=== PATIENT | female | born 1995 ===

== ENCOUNTER 2019-03-26 13:28 | Outpatient (CLI) | payer OTHER ==
[~2019-03-26] VITALS: Ht 162.6 cm; Wt 113.0 kg
[2019-03-26 13:44] VITALS: BP 138/80
== END 2019-03-26 16:00 | disposition home or self-care (01) ==
LOC: LDOP 13:28
PROVIDERS: ATTEND Obstetrics & Gynecology Maternal & Fetal Medicine
DX: O16.3 Unspecified maternal hypertension, third trimester (principal); Z3A.39 39 weeks gestation of pregnancy
CPT/HCPCS: 36415; 59025; 80053; 80307; 81001; 82248; 82570; 84156; 84550; 85025; 99201; G0463

== ENCOUNTER 2019-03-27 14:51 | Inpatient (IN) | payer OTHER ==
[~2019-03-27] VITALS: Ht 162.6 cm; Wt 115.0 kg
[~2019-03-27 14:51] MED LIST: PREN1TAB60 PO
[2019-03-31] MEDS ORDERED: OXYTOCIN 30U/ 0.9% NaCL 500ML 500 ML IV ONE (16:34)
[2019-03-31] MEDS: D5%-LACTATED RINGERS 1,000 ML IV SCH (16:34)
[2019-03-31] MEDS ORDERED: FENTANYL PF 100 MCG/2ML IV PRN (17:00)
[2019-03-31] MEDS: PLEASE ENTER ALLERGIES MC SCH (17:00)
[2019-03-31] MEDS ORDERED: TERBUTALINE 1 MG/ML, 1ML SQ PRN (17:00)
[2019-03-31] MEDS ORDERED: ONDANSETRON 2MG/ML, 2ML IVPush PRN (17:00)
[2019-03-31] MEDS ORDERED: CALCIUM CARBONATE 500 MG TAB.CHEW PO PRN (17:00)
[2019-03-31] MEDS ORDERED: FENTANYL PF 100 MCG/2ML IVPush PRN (17:00)
[2019-03-31] MEDS: PLEASE ENTER HEIGHT AND WEIGHT MC SCH (17:00)
[2019-03-31 17:03] LABS: MICROSCOPIC INDICATED
[2019-03-31 17:08] LABS: ALANINE AMINOTRANSFERASE 16 U/L (12-78); ALBUMIN 2.5 g/dL (3.4-5.0); ANION GAP 10 mmol/L (5-15); CALCIUM 8.6 mg/dL (8.5-10.1); CHLORIDE 107 mmol/L (98-107)
[2019-03-31 17:09] LABS: BASOPHILS # (AUTO) 0.02 x10^3/uL (0-0.1); BASOPHILS % (AUTO) 0 % (0-1); BILIRUBIN, DIRECT < 0.1 mg/dL (0.1-0.2); EOSINOPHILS # (AUTO) 0.01 x10^3/uL (0-0.4); EOSINOPHILS % (AUTO) 0 % (1-7); LYMPHOCYTES # (AUTO) 2.02 x10^3/uL (1-3.4); LYMPHOCYTES % (AUTO) 21 % (22-44); MD NO; MEAN CORPUSCULAR HEMOGLOBIN 29.3 pg (27.0-34.8); MEAN CORPUSCULAR HGB CONC 32.7 g/dL (32.4-35.8); MEAN CORPUSCULAR VOLUME 89.8 fL (80-100); MEAN PLATELET VOLUME 10.9 fL (7.4-10.4); MONOCYTES # (AUTO) 0.39 x10^3/uL (0.2-0.8); MONOCYTES % (AUTO) 4 % (2-9); NEUTROPHILS # (AUTO) 7.31 x10^3/uL (1.8-6.8); NEUTROPHILS % (AUTO) 75 % (42-75); PLATELET COUNT 219 x10^3/uL (130-400); RED BLOOD COUNT 3.98 x10^6/uL (3.82-5.3); RED CELL DISTRIBUTION WIDTH 14.7 % (9.6-15.2)
[2019-03-31 17:10] LABS: CREATININE,URINE RANDOM 51.7 mg/dL
[2019-03-31 17:10] LABS: ALKALINE PHOSPHATASE 118 U/L (45-117); BILIRUBIN,TOTAL 0.3 mg/dL (0.2-1.0); TOTAL PROTEIN 7.1 g/dL (6.4-8.2)
[2019-03-31] MEDS: LACTATED RINGERS 1,000 ML IV SCH (23:27)
[2019-04-01] MEDS: D5%-LACTATED RINGERS 1,000 ML IV SCH ×3 (00:34→16:34)
[2019-04-01] MEDS: PLEASE ENTER HEIGHT AND WEIGHT MC SCH ×3 (01:00→17:00)
[2019-04-01] MEDS: PLEASE ENTER ALLERGIES MC SCH ×3 (01:00→17:00)
[2019-04-01] MEDS ORDERED: OXYTOCIN 30U/ 0.9% NaCL 500ML 500 ML ONE (04:26)
[2019-04-01] MEDS: LACTATED RINGERS 1,000 ML IV SCH ×3 (08:34→16:34)
[2019-04-01] MEDS ORDERED: OXYTOCIN 30U/ 0.9% NaCL 500ML 500 ML IV PRN (12:37)
[2019-04-01] MEDS ORDERED: AMPICILLIN 2 GM in SODIUM CHLORIDE 0.9% 100 ML IVPB ONE (12:37)
[2019-04-01] MEDS: AMPICILLIN 1 GM in SODIUM CHLORIDE 0.9% 100 ML IVPB SCH ×2 (17:45→22:33)
[2019-04-01 19:45] VITALS: BP 142/80
[2019-04-02] MEDS: AMPICILLIN 1 GM in SODIUM CHLORIDE 0.9% 100 ML IVPB SCH ×5 (02:30→19:26)
[2019-04-02] MEDS ORDERED: OXYTOCIN 30U/ 0.9% NaCL 500ML 500 ML IV PRN (06:22)
[2019-04-02] MEDS: D5%-LACTATED RINGERS 1,000 ML IV SCH (10:45)
[2019-04-02] MEDS ORDERED: ONDANSETRON 2MG/ML, 2ML ONE (13:14)
[2019-04-02] MEDS ORDERED: FENTANYL PF 100 MCG/2ML ONE (15:56)
[2019-04-02] MEDS ORDERED: LACTATED RINGERS 1,000 ML IV SCH (16:16)
[2019-04-02] MEDS ORDERED: FENTANYL/BUPIV./NS/PF 250 ML EPIDCONT SCH (16:16)
[2019-04-02] MEDS ORDERED: LACTATED RINGERS 1,000 ML IVBOLUS PRN (16:30)
[2019-04-02] MEDS ORDERED: EPHEDRINE 50 MG/ML, 1ML IVPush PRN (16:30)
[2019-04-02] MEDS ORDERED: LIDOCAINE/PF 1.5%-EPI 1:200K, 30ML ONE (16:59)
[2019-04-02] MEDS ORDERED: FENTANYL PF 500 MCG, BUPIVACAINE/PF 0.5%, 30ML 62.5 ML in SODIUM CHLORIDE 0.9% 177.5 ML EPIDCONT SCH (17:00)
[2019-04-02] MEDS ORDERED: OXYTOCIN 30U/ 0.9% NaCL 500ML 500 ML IV SCH (23:47)
[2019-04-03] MEDS ORDERED: CARBOPROST TROMETHAMINE 250 MCG/ML, 1ML IM PRN
[2019-04-03] MEDS ORDERED: OXYcodone IR 5MG TABLET PO PRN
[2019-04-03] MEDS ORDERED: ONDANSETRON 2MG/ML, 2ML IV PRN
[2019-04-03] MEDS ORDERED: MISOPROSTOL 200 MCG TABLET PR PRN
[2019-04-03] MEDS ORDERED: ACETAMINOPHEN 325 MG TABLET PO PRN
[2019-04-03] MEDS ORDERED: OXYcodone/APAP 5/325MG TABLET PO PRN
[2019-04-03 02:45] VITALS: BP 122/82
[2019-04-03] MEDS: IBUPROFEN 600 MG TABLET PO PRN ×4 (04:28→22:31)
[2019-04-03 06:40] LABS: MEAN CORPUSCULAR HEMOGLOBIN 29.3 pg (27.0-34.8); MEAN CORPUSCULAR HGB CONC 32.8 g/dL (32.4-35.8); MEAN CORPUSCULAR VOLUME 89.4 fL (80-100); MEAN PLATELET VOLUME 9.7 fL (7.4-10.4); PLATELET COUNT 187 x10^3/uL (130-400); RED BLOOD COUNT 2.99 x10^6/uL (3.82-5.3); RED CELL DISTRIBUTION WIDTH 14.6 % (9.6-15.2)
[2019-04-03 06:59] LABS: BASOPHILS # (AUTO) 0.06 x10^3/uL (0-0.1); BASOPHILS % (AUTO) 0 % (0-1); EOSINOPHILS # (AUTO) 0.01 x10^3/uL (0-0.4); EOSINOPHILS % (AUTO) 0 % (1-7); LYMPHOCYTES # (AUTO) 2.13 x10^3/uL (1-3.4); LYMPHOCYTES % (AUTO) 11 % (22-44); MD SCAN; MONOCYTES # (AUTO) 0.91 x10^3/uL (0.2-0.8); MONOCYTES % (AUTO) 5 % (2-9); NEUTROPHILS # (AUTO) 16.27 x10^3/uL (1.8-6.8); NEUTROPHILS % (AUTO) 84 % (42-75)
[2019-04-03 07:20] VITALS: BP 120/85
[2019-04-03] MEDS ORDERED: FERROUS SULFATE 325 MG TABLET ONE (10:01)
[2019-04-03] MEDS: PRENATAL VIT/IRON/FA 1 EACH TABLET PO SCH (10:08)
[2019-04-03] MEDS: DOCUSATE 100 MG CAPSULE PO SCH ×2 (10:08→22:32)
[2019-04-03] MEDS: FERROUS GLUCONATE 324 MG TABLET PO SCH (10:10)
[2019-04-03 12:15] VITALS: BP 128/85
[2019-04-03] MEDS ORDERED: MEASLES,MUMPS&RUBELLA VACC/PF 0.5 ML SQ-VACC ONE ×2 (13:48→14:30)
[2019-04-03] MEDS ORDERED: DIPH,PERTUSS(ACELL),TET VAC/PF NC IM-VACC ONE ×2 (14:17→14:30)
[2019-04-03 16:00] VITALS: BP 132/70
[2019-04-03 19:40] VITALS: BP 123/89
[2019-04-04 07:00] VITALS: BP 126/86
[2019-04-04] MEDS: FERROUS GLUCONATE 324 MG TABLET PO SCH (07:26)
[2019-04-04] MEDS: DOCUSATE 100 MG CAPSULE PO SCH (07:26)
[2019-04-04] MEDS: PRENATAL VIT/IRON/FA 1 EACH TABLET PO SCH (07:26)
[2019-04-04] MEDS: IBUPROFEN 600 MG TABLET PO PRN ×2 (07:26→16:34)
[2019-04-04] MEDS ORDERED: FERROUS GLUCONATE 324 MG TABLET PO SCH (08:00)
[2019-04-04] MEDS ORDERED: DOCU-131 PO (14:11)
[2019-04-04] MEDS ORDERED: IBUP-1222 PO (14:11)
[2019-04-04] MEDS ORDERED: FERR324T18 PO (14:12)
== END 2019-04-04 20:07 | disposition home or self-care (01) | DRG 768 ==
LOC: LDIP 03-31 16:31 → 2NW 04-03 02:30
PROVIDERS: ADMIT Obstetrics & Gynecology Maternal & Fetal Medicine; ATTEND Obstetrics & Gynecology Maternal & Fetal Medicine
PROC: 10E0XZZ Delivery of Products of Conception, External Approach (ICD-10-PCS; principal; 2019-04-02)
PROC: 0DQP0ZZ Repair Rectum, Open Approach (ICD-10-PCS; 2019-04-02)
PROC: 3E0R3BZ Introduction of Anesthetic Agent into Spinal Canal, Percutaneous Approach (ICD-10-PCS; 2019-04-02)
PROC: 00HU33Z Insertion of Infusion Device into Spinal Canal, Percutaneous Approach (ICD-10-PCS; 2019-04-02)
PROC: 10907ZC Drainage of Amniotic Fluid, Therapeutic from Products of Conception, Via Natural or Artificial Opening (ICD-10-PCS; 2019-04-02)
DX: O48.0 Post-term pregnancy (principal); Z37.0 Single live birth; O70.3 Fourth degree perineal laceration during delivery; D64.9 Anemia, unspecified; E66.9 Obesity, unspecified; O99.214 Obesity complicating childbirth; O99.824 Streptococcus B carrier state complicating childbirth; Z3A.40 40 weeks gestation of pregnancy; O90.81 Anemia of the puerperium; O99.284 Endocrine, nutritional and metabolic diseases complicating childbirth; E03.9 Hypothyroidism, unspecified
CPT/HCPCS: 36415; J7121; 80053; 81001; 82248; 82570; 84156; 84550; 85025; 86850; 86900; 90715; G0378; J0290; J3010; J2590; J7120